=== PATIENT | male | born 1995 | race Hispanic/Latino ===

== ENCOUNTER 2021-07-06 09:45 | Emergency (ER) | payer OTHER ==
[~2021-07-06] VITALS: Ht 180.3 cm; Wt 95.5 kg
[2021-07-06 11:46] VITALS: BP 144/91
== END 2021-07-06 11:47 | disposition home or self-care (01) ==
LOC: M ED 09:45
DX: S82.145A Nondisplaced bicondylar fracture of left tibia, initial encounter for closed fracture (principal); M23.52 Chronic instability of knee, left knee; X58.XXXA Exposure to other specified factors, initial encounter; Y92.830 Public park as the place of occurrence of the external cause; Y93.21 Activity, ice skating; Y99.9 Unspecified external cause status

== ENCOUNTER 2021-10-11 17:26 | Emergency (ER) | payer OTHER ==
[~2021-10-11] VITALS: Ht 180.3 cm; Wt 95.5 kg
[2021-10-11] MEDS ORDERED: AUGMENTIN 875 MG TAB PO ONE (21:05)
[2021-10-11] MEDS ORDERED: AMOX875T2 PO (21:07)
[2021-10-11 21:13] VITALS: BP 121/68
== END 2021-10-11 21:16 | disposition home or self-care (01) ==
LOC: M ED 17:26
DX: K04.7 Periapical abscess without sinus (principal)